=== PATIENT | female | born 2000 | race Caucasian/White ===

== ENCOUNTER 2024-08-21 09:07 | Outpatient (CLI) | payer OTHER, SELFPAY | END 2024-08-21 09:08 | disposition home or self-care (01) | LOC: AMB 08-23 09:57 | PROVIDERS: Visit Provider Family Medicine | DX: S49.92XA Unspecified injury of left shoulder and upper arm, initial encounter (principal); V47.0XXA Car driver injured in collision with fixed or stationary object in nontraffic accident, initial encounter; Y92.410 Unspecified street and highway as the place of occurrence of the external cause | CPT/HCPCS: A0998 ==